=== PATIENT | female | born 1965 | race Caucasian/White ===

== ENCOUNTER → 2016-12-24 | Outpatient (CLI) | payer BC ==
[~2016-12-24] MED LIST: ATOR10TA88 PO; CYAN10004 PO; ERGO1CAP41 PO; FERR-24 PO; FOLI1TAB7 PO; IBUP-1277 PO; IRON20IN; Inderal PO; imitrex; tramadol PO
--- NOTE | 2016-12-24 13:22 | MAMMOGRAPHY REPORT ---
BILATERAL DIGITAL SCREENING MAMMOGRAM WITH CAD: 12/24/2016 CLINICAL HISTORY: Routine screening. Patient has no complaints. TECHNIQUE: Current study was also evaluated with a Computer Aided Detection (CAD) system. Bilateral CC and MLO views including implant displaced views were obtained. COMPARISON: Comparison is made to exams dated: 08/05/2015 mammogram, 01/31/2015 mammogram, 11/27/2013 ma mmogram - [facility], and 05/04/2007. BREAST COMPOSITION: The tissue of both breasts is almost entirely fatty. FINDINGS: No suspicious masses, calcifications, or areas of architectural distortion are noted in ei ther breast. There has been no significant interval change compared to prior exams. Bilateral subpec ruth saline implants are again noted. IMPRESSION: ACR BI-RADS CATEGORY 2: BENIGN There is no mammographic evidence of malignancy. A 1 year screening mammogram is recommended. The pa tient will receive written notification of the results. Approximately 10% of breast cancers are not detected with mammography. A negative mammographic report should not delay biopsy if a clinically suggestive mass is present. Bernadette Rivas M.D. ah/:12/24/2016 12:20:37 Professor Of Religious Studies: Lety EVANS(Conchis)(M), [facility] letter sent: Normal 1/2 BI-RADS Code: ACR BI-RADS Category 2: Benign
== END | disposition home or self-care (01) ==
LOC: C.MAMM 11:49
PROVIDERS: ATTEND Obstetrics & Gynecology
DX: Z12.31 Encounter for screening mammogram for malignant neoplasm of breast (principal); Z98.82 Breast implant status

== ENCOUNTER → 2017-07-06 | Outpatient (CLI) | payer BC ==
[~2017-07-06] MED LIST changes: +ATOR10TA82 PO; -ATOR10TA88 PO; -ERGO1CAP41 PO; +ERGO500011 PO; -FOLI1TAB7 PO; +FOLI1TAB8 PO
--- NOTE | 2017-07-06 16:55 | DIAGNOSTIC IMAGING REPORT ---
R FOOT MIN 3 VIEWS ROUTINE CLINICAL HISTORY: M20.41 OTHER HAMMER TOES, R FOOT pain COMPARISON: None. DISCUSSION: The bones and joint spaces appear intact. There is no evidence of fracture, dislocation or bony disease. There is no evidence for soft tissue swelling. Small heel spur IMPRESSION: Negative study. Small heel spur The above report was generated using voice recognition software. It may contain grammatical, syntax or spelling errors. Electronically signed by: Wilfredo Penny M.D. 07/06/2017 4:54 PM Dictated Date/Time: 07/06/2017 4:53 PM
== END ==
LOC: C.RAD 16:22
PROVIDERS: ATTEND Podiatrist
DX: M20.41 Other hammer toe(s) (acquired), right foot (principal)

== ENCOUNTER → 2017-09-12 | Outpatient (CLI) | payer BC ==
--- NOTE | 2017-09-12 07:38 | DIAGNOSTIC IMAGING REPORT ---
RIGHT HAND 3 VIEWS CLINICAL HISTORY: Lump along the posterior hand. COMPARISON STUDY: No priors. FINDINGS: 3 views of the right hand are obtained. No prior studies are available for comparison at the time of dictation. The skeletal structures are well mineralized for age. No fracture is seen. Minimal osteoarthritic change is noted at the first carpometacarpal and metacarpophalangeal joints. Minimal osteoarthritic change is also seen at the fifth distal interphalangeal joint. No erosive disease is identified. Minimal cystic degenerative change is seen in the lunate. The overlying soft tissues are within normal limits. IMPRESSION: 1. Minimal degenerative change as above. No acute osseous abnormality is seen. 2. No abnormality is identified to correspond to the clinical history of a palpable lump along the dorsal aspect of the hand. Electronically signed by: Fletcher Galarza M.D. 09/12/2017 7:36 AM Dictated Date/Time: 09/12/2017 7:35 AM
== END | disposition home or self-care (01) ==
LOC: C.RAD 07:10
PROVIDERS: ATTEND Family Medicine
DX: M15.9 Polyosteoarthritis, unspecified (principal)

== ENCOUNTER → 2017-12-30 | Outpatient (CLI) | payer BC ==
--- NOTE | 2017-12-30 15:28 | MAMMOGRAPHY REPORT ---
BILATERAL DIGITAL SCREENING MAMMOGRAM TOMOSYNTHESIS WITH CAD: 12/30/2017 CLINICAL HISTORY: Patient presents for routine screening. S/P bilateral augmentation. TECHNIQUE: The study was acquired using full field digital technology and interpreted from soft copy. Breast tomosynthesis in addition to standard 2D mammography was performed. Current study was also ev aluated with a Computer Aided Detection (CAD) system. COMPARISON: Comparison is made to exams dated: 12/24/2016 mammogram, 08/05/2015 mammogram, 01/31/2015 ma mmogram, 07/09/2011 mammogram - [facility], and 05/04/2007. BREAST COMPOSITION: The tissue of both breasts is almost entirely fatty. FINDINGS: No suspicious masses, calcifications, or areas of architectural distortion are noted in either breast . There has been no significant interval change compared to prior exams. Bilateral subpectoral saline implants are again noted. IMPRESSION: ACR BI-RADS CATEGORY 2: BENIGN There is no mammographic evidence of malignancy. A 1 year screening mammogram is recommended.( 019) The patient will receive written notification of the results. Some breast cancers are not detected with mammography. A negative mammographic report should not makenzie y biopsy if a clinically suggestive mass is present. Bernadette Rivas M.D. ah/:12/30/2017 07:52:43 Elevator Repair Mechanic: Shraddha Felder, [facility] letter sent: Normal 1/2 BI-RADS Code: ACR BI-RADS Category 2: Benign
== END | disposition home or self-care (01) ==
LOC: C.MAMM 07:27
PROVIDERS: ATTEND Obstetrics & Gynecology
DX: Z12.31 Encounter for screening mammogram for malignant neoplasm of breast (principal); Z98.82 Breast implant status